=== PATIENT | male | born 1990 ===

== ENCOUNTER 2024-08-06 16:11 | Emergency (ER) | payer OTHER ==
--- NOTE | 2024-08-06 17:03 | ED ---
General Adult HPI - General Chief complaint: Psychiatric Symptoms Stated complaint: AMS Time Seen by Provider: 08/06/24 16:17 Source: patient Mode of arrival: EMS Limitations: altered mental status - History of Present Illness Initial comments: Dictation was produced using [employer] dictation software. please excuse any grammatical, word or spelling errors. Chief Complaint: 34-year-old male presents with heroin and benzodiazepine withdrawal History of Present Illness: Patient 34-year-old male he misses transportation to [facility] for facility treatment of illicit drug use and dependence. Patient states that he has an addiction to benzodiazepines and opiates. States that he started to feel little weak and withdrawing from the substances. He does take benzodiazepines at home. Denies any suicidal homicidal ideation. The ROS documented in this emergency department record has been reviewed and confirmed by me. Those systems with pertinent positive or negative responses have been documented in the HPI. All other systems are other negative and/or noncontributory. - Related Data Previous Rx's Medication Instructions Recorded ALPRAZolam [Xanax] 0.5 mg PO DAILY PRN 3 Days #3 08/06/24 tablet Allergies Allergy/AdvReac Type Severity Reaction Status Date / Time buspirone Allergy Swelling Verified 08/06/24 17:11 Review of Systems ROS Statement: Those systems with pertinent positive or pertinent negative responses have been documented in the HPI. ROS Other: All systems not noted in ROS Statement are negative. Past Medical History History of Any Multi-Drug Resistant Organisms: None Reported Additional Past Surgical History / Comment(s): 2010 wisdom teeth Past Psychological History: ADD/ADHD, Anxiety, Depression, Panic Disorder Smoking Status: Current every day smoker, Vaper Past Alcohol Use History: None Reported Past Drug Use History: Cocaine, Heroin, Marijuana, Methamphetamine, Prescription Drug Abuse General Exam - General Exam Comments Initial Comments: PHYSICAL EXAM: General Impression: Alert and oriented x3, not in acute distress HEENT: Normocephalic atraumatic, extra-ocular movements intact, pupils equal and reactive to light bilaterally, mucous membranes moist. Cardiovascular: Heart regular rate and rhythm Chest: Able to complete full sentences, no retractions, no tachypnea Abdomen: abdomen soft, non-tender, non-distended, no organomegaly Musculoskeletal: Pulses present and equal in all extremities, no peripheral edema Motor: no focal deficits noted Neurological: CN II-XII grossly intact, no focal motor or sensory deficits noted Skin: Intact with no visualized rashes Psych: Normal affect and mood Limitations: altered mental status Course Vital Signs 08/06/24 08/06/24 08/06/24 16:18 17:14 18:16 Temperature 98.3 F 98 F Pulse Rate 100 89 87 Respiratory 18 18 20 Rate Blood Pressure 102/77 102/77 124/61 O2 Sat by Pulse 100 97 95 Oximetry EKG Findings - EKG Comments: EKG Findings:: My EKG interpretation: Ventricular rate 88, sinus rhythm, DE interval 153, QRS 88, QTc 406. No DE prolongation, no QTC prolongation, no ST or T-wave changes noted. Overall, this EKG is unremarkable Medical Decision Making - Medical Decision Making Was pt. sent in by a medical professional or institution (, PA, TRANSITIONAL LIVING SPECIALIST, urgent care, hospital, or assisted...) When possible be specific @ -No Did you speak to anyone other than the patient for history (EMS, parent, family, police, friend...)? What history was obtained from this source @ -No Did you review nursing and triage notes (agree or disagree)? Why? @ -I reviewed and agree with nursing and triage notes Were old charts reviewed (outside hosp., previous admission, EMS record, old EKG, old radiological studies, urgent care reports/EKG's, assisted records)? Report findings @ -No old charts were reviewed Differential Diagnosis (chest pain, altered mental status, abdominal pain women, abdominal pain men, vaginal bleeding, musculoskeletal, weakness, fever, dyspnea, syncope, headache, dizziness, GI bleed, back pain, seizure, CVA, palpatations, mental health)? @ -Differential Weakness: Hypoglycemia, shock, sepsis, hyponatremia, anemia, infection, ME, ETOH, adverse medicine reaction, overdose, stroke, this is not meant to be an all-inclusive list. EKG interpreted by me (3pts min.). @ -See above X-rays interpreted by me (1pt min.). @ -None done CT interpreted by me (1pt min.). @ -None done U/S interpreted by me (1pt. min.). @ -None done What testing was considered but not performed or refused? (CT, X-rays, U/S, labs)? Why? @ -None What meds were considered but not given or refused? Why? @ -None Was smoking cessation discussed for >3mins.? @ -No Were there social determinants of health that impacted care today? How? (Homelessness, low income, unemployed, alcoholism, drug addiction, transportation, low edu. Level, literacy, decrease access to med. care, prison, rehab)? @ -No Was there de-escalation of care discussed even if they declined (Discuss DNR or withdrawal of care, Hospice)? DNR status @ -No What co-morbidities impacted this encounter? (DM, HTN, Smoking, COPD, CAD, Cancer, CVA, ARF, Chemo, Hep., AIDS, mental health diagnosis, sleep apnea, morbid obesity)? @ -None Was patient admitted / discharged? Hospital course, mention meds given and route, prescriptions, significant lab abnormalities, going to OR and other pertinent info. @ -34-year-old male presents emergency department for concerns of withdrawal. Vital signs are stable. Patient states he is dependent on opiates and benzod iazepines. Does not have any benzodiazepine medications at home. Patient given Ativan IV fluids. Labs unremarkable. Patient observed in emergency department for 4 hours. Reevaluated bedside 80 1 PM found to be stable condition. Patient discharged advised follow-up with [facility] tomorrow morning for in facility admission. Did you discuss the management of the patient with other professionals (professionals i.e. , PA, TRANSITIONAL LIVING SPECIALIST, lab, RT, psych nurse, nursing home social worker, boilermaking supervisor, teacher, forest fire officer, rehabilitation case coordinator)? Give summary @ -No Was critical care preformed (if so, how long)? @ -No Undiagnosed new problem with uncertain prognosis? @ -No Drug Therapy requiring intensive monitoring for toxicity (Heparin, Nitro, Insulin, Cardizem)? @ -No Were any procedures done? @ -No Diagnosis/symptom? Acute, or Chronic, or Acute on Chronic? Uncomplicated (without systemic symptoms) or Complicated (systemic symptoms)? @ -Benzodiazepine dependence Side effects of treatment? @ -No Exacerbation, Progression, or Severe Exacerbation? @ -No Poses a threat to life or bodily function? How? (Chest pain, USA, [place], pneumonia, PE, COPD, DKA, ARF, appy, cholecystitis, CVA, Diverticulitis, Homicidal, Suicidal, threat to staff... and all critical care pts) @ -yes - Lab Data Result diagrams: 08/06/24 17:13 08/06/24 17:13 Lab Results 08/06/24 08/06/24 Range/Units 17:13 17:13 WBC 5.84 (4.50-10.00) 10*3/uL RBC 5.91 H (4.40-5.60) 10*6/uL Hgb 16.5 (13.0-17.0) g/dL Hct 48.6 (39.6-50.0) % MCV 82.2 (80.0-97.0) fL MCH 27.9 (27.0-32.0) pg MCHC 34.0 (32.0-37.0) g/dL Plt Count 445 H (140-440) 10*3/uL MPV 8.9 L (9.5-12.2) fL Immature Gran % (Auto) 0.2 % Neutrophils % 67.6 % Lymphocytes % 26.9 % Monocytes % 4.3 % Eosinophils % 0.7 % Basophils % 0.3 % Immature Gran # 0.01 (0.00-0.04) 10*3/uL Neutrophils # 3.95 (1.80-7.70) 10*3/uL Lymphocytes # 1.57 (0.90-5.00) 10*3/uL Monocytes # 0.25 (0.20-1.00) 10*3/uL Eosinophils # 0.04 (0.04-0.35) 10*3/uL Basophils # 0.02 (0.00-0.10) 10*3/uL Sodium 139 (137-145) mmol/L Potassium 4.7 (3.5-5.1) mmol/L Chloride 101 (98-107) mmol/L Carbon Dioxide 22 (22-30) mmol/L Anion Gap 16 mmol/L BUN 13 (9-20) mg/dL Creatinine 0.84 (0.66-1.25) mg/dL Est GFR (CKD-EPI)AfAm >90 (>60 ml/min/1.73 sqM) Est GFR (CKD-EPI)NonAf >90 (>60 ml/min/1.73 sqM) Glucose 87 (74-99) mg/dL Calcium 10.3 H (8.4-10.2) mg/dL Magnesium 2.2 (1.6-2.3) mg/dL Disposition Clinical Impression: Benzodiazepine abuse Disposition: HOME SELF-CARE Condition: Good Instructions (If sedation given, give patient instructions): Benzodiazepine Abuse (ED) Prescriptions: ALPRAZolam [Xanax] 0.5 mg PO DAILY PRN 3 Days #3 tablet PRN Reason: Anxiety Is patient prescribed a controlled substance at d/c from ED?: Yes If prescribed controlled substance>3 days was MAPS reviewed?: Prescribed <3 Days Referrals: None,Stated [Primary Care Provider] - 1-2 days Time of Disposition: 20:04
[2024-08-06 17:18] VITALS: TEMP 98
[2024-08-06 17:26] LABS: Basophils # (A) 0.02 10*3/uL (0.00-0.10); Basophils % (A) 0.3 %; Eosinophils # (A) 0.04 10*3/uL (0.04-0.35); Eosinophils % (A) 0.7 %; HCT 48.6 % (39.6-50.0); HGB 16.5 g/dL (13.0-17.0); Lymphocytes # (A) 1.57 10*3/uL (0.90-5.00); Lymphocytes % (A) 26.9 %; MCH 27.9 pg (27.0-32.0); MCV 82.2 fL (80.0-97.0); Mean Platelet Volume 8.9 fL (9.5-12.2); Monocytes # (A) 0.25 10*3/uL (0.20-1.00); Monocytes % (A) 4.3 %; Neutrophils # (A) 3.95 10*3/uL (1.80-7.70); Neutrophils % (A) 67.6 %; Platelet Count 445 10*3/uL (140-440); RBC 5.91 10*6/uL (4.40-5.60); RDW 12.2 % (11.5-14.5); WBC 5.84 10*3/uL (4.50-10.00)
[2024-08-06 18:08] LABS: African American GFR (CKD) >90 (>60 ml/min/1.73 sqM); Anion Gap 16 mmol/L; Blood Urea Nitrogen 13 mg/dL (9-20); Calcium 10.3 mg/dL (8.4-10.2); Carbon Dioxide 22 mmol/L (22-30); Chloride 101 mmol/L (98-107); Glucose 87 mg/dL (74-99); Magnesium 2.2 mg/dL (1.6-2.3); Non-African American GFR(CKD) >90 (>60 ml/min/1.73 sqM); Potassium 4.7 mmol/L (3.5-5.1); Sodium 139 mmol/L (137-145)
[2024-08-06 20:08] VITALS: RESP 18
[2024-08-06] MEDS: ALPRAZolam 1 MG TAB PO STA (20:14)
--- NOTE | 2024-08-06 20:20 | ED ---
Medical Decision Making - Lab Data Result diagrams: 08/06/24 17:13 08/06/24 17:13 Lab Results 08/06/24 08/06/24 Range/Units 17:13 17:13 WBC 5.84 (4.50-10.00) 10*3/uL RBC 5.91 H (4.40-5.60) 10*6/uL Hgb 16.5 (13.0-17.0) g/dL Hct 48.6 (39.6-50.0) % MCV 82.2 (80.0-97.0) fL MCH 27.9 (27.0-32.0) pg MCHC 34.0 (32.0-37.0) g/dL Plt Count 445 H (140-440) 10*3/uL MPV 8.9 L (9.5-12.2) fL Immature Gran % (Auto) 0.2 % Neutrophils % 67.6 % Lymphocytes % 26.9 % Monocytes % 4.3 % Eosinophils % 0.7 % Basophils % 0.3 % Immature Gran # 0.01 (0.00-0.04) 10*3/uL Neutrophils # 3.95 (1.80-7.70) 10*3/uL Lymphocytes # 1.57 (0.90-5.00) 10*3/uL Monocytes # 0.25 (0.20-1.00) 10*3/uL Eosinophils # 0.04 (0.04-0.35) 10*3/uL Basophils # 0.02 (0.00-0.10) 10*3/uL Sodium 139 (137-145) mmol/L Potassium 4.7 (3.5-5.1) mmol/L Chloride 101 (98-107) mmol/L Carbon Dioxide 22 (22-30) mmol/L Anion Gap 16 mmol/L BUN 13 (9-20) mg/dL Creatinine 0.84 (0.66-1.25) mg/dL Est GFR (CKD-EPI)AfAm >90 (>60 ml/min/1.73 sqM) Est GFR (CKD-EPI)NonAf >90 (>60 ml/min/1.73 sqM) Glucose 87 (74-99) mg/dL Calcium 10.3 H (8.4-10.2) mg/dL Magnesium 2.2 (1.6-2.3) mg/dL Disposition Clinical Impression: Benzodiazepine abuse Disposition: HOME SELF-CARE Condition: Good Instructions (If sedation given, give patient instructions): Benzodiazepine Abuse (ED) Prescriptions: ALPRAZolam [Xanax] 0.5 mg PO DAILY PRN #3 tablet PRN Reason: withdrawal symptoms Is patient prescribed a controlled substance at d/c from ED?: Yes If prescribed controlled substance>3 days was MAPS reviewed?: Prescribed <3 Days Referrals: None,Stated [Primary Care Provider] - 1-2 days
[2024-08-06 20:22] VITALS: BP 124/64; PULSE 92
== END 2024-08-06 20:21 | disposition home or self-care (01) ==
LOC: EC 16:11
DX: F13.10 Sedative, hypnotic or anxiolytic abuse, uncomplicated (principal); F17.290 Nicotine dependence, other tobacco product, uncomplicated; Z88.8 Allergy status to other drugs, medicaments and biological substances
CPT/HCPCS: 36415; 80048; 83735; 85025; 93005; 99285

== ENCOUNTER 2024-08-06 20:51 | Emergency (ER) | payer OTHER ==
--- NOTE | 2024-08-06 22:20 | ED ---
General Adult HPI - General Stated complaint: Shaky,Dizziness Time Seen by Provider: 08/06/24 21:03 Source: patient, RN notes reviewed Mode of arrival: wheelchair Limitations: no limitations - History of Present Illness Initial comments: Quick note: This is a 34-year-old male with history of extensive drug abuse presenting for dizziness and shakiness starting this morning. Patient was seen in the ER earlier today with similar symptoms, stating symptoms are still ongoing. Patient mentions he is unable to walk but was able to walk from waiting room to fast-track room without difficulty. CBC and BMP taken about 4 hours prior to patient's return revealed no concerning findings. Patient received Xanax from physician earlier today for ongoing benzodiazepine and opiate withdrawal symptoms. Onset/Timin -: days(s) Associated Symptoms: weakness Treatments Prior to Arrival: none - Related Data Previous Rx's Medication Instructions Recorded ALPRAZolam [Xanax] 0.5 mg PO DAILY PRN #3 tablet 08/06/24 Allergies Allergy/AdvReac Type Severity Reaction Status Date / Time buspirone Allergy Swelling Verified 08/06/24 23:06 Review of Systems ROS Statement: Those systems with pertinent positive or pertinent negative responses have been documented in the HPI. ROS Other: All systems not noted in ROS Statement are negative. Past Medical History History of Any Multi-Drug Resistant Organisms: None Reported Additional Past Surgical History / Comment(s): 2010 wisdom teeth Past Psychological History: ADD/ADHD, Anxiety, Depression, Panic Disorder Smoking Status: Current every day smoker, Vaper Past Alcohol Use History: None Reported Past Drug Use History: Cocaine, Heroin, Marijuana, Methamphetamine, Prescription Drug Abuse General Exam General appearance: alert, in no apparent distress Head exam: Present: atraumatic, normocephalic, normal inspection Eye exam: Present: normal appearance, PERRL, EOMI. Absent: scleral icterus, conjunctival injection, periorbital swelling ENT exam: Present: normal exam, mucous membranes moist Neck exam: Present: normal inspection. Absent: tenderness, meningismus, lymphadenopathy Respiratory exam: Present: normal lung sounds bilaterally. Absent: respiratory distress, wheezes, rales, rhonchi, stridor, accessory muscle use, decreased breath sounds, prolonged expiratory Cardiovascular Exam: Present: regular rate, normal rhythm, normal heart sounds. Absent: systolic murmur, diastolic murmur, rubs, gallop, clicks GI/Abdominal exam: Present: soft, normal bowel sounds. Absent: distended, t enderness, guarding, rebound, rigid Extremities exam: Present: normal inspection, full ROM, normal capillary refill. Absent: tenderness, pedal edema, joint swelling, calf tenderness Back exam: Present: normal inspection Neurological exam: Present: alert, oriented X3, CN II-XII intact Psychiatric exam: Present: normal affect, normal mood Skin exam: Present: warm, dry, intact, normal color. Absent: rash Course Vital Signs 08/06/24 23:00 Temperature 98.1 F Pulse Rate 63 Respiratory 20 Rate Blood Pressure 133/89 O2 Sat by Pulse 98 Oximetry Medical Decision Making - Medical Decision Making Was pt. sent in by a medical professional or institution (YEIMY Obando, HARDWARE TEST ENGINEER, urgent care, hospital, or [place] [facility] facility...) When possible be specific @ -[No] Did you speak to anyone other than the patient for history (EMS, parent, family, police, friend...)? What history was obtained from this source @ -[No] Did you review nursing and triage notes (agree or disagree)? Why? @ -[I reviewed and agree with nursing and triage notes] Were old charts reviewed (outside hosp., previous admission, EMS record, old EKG, old radiological studies, urgent care reports/EKG's, [place] [facility] facility records)? Report findings @ -[No old charts were reviewed] Differential Diagnosis (chest pain, altered mental status, abdominal pain women, abdominal pain men, vaginal bleeding, weakness, fever, dyspnea, syncope, headache, dizziness, GI bleed, back pain, seizure, CVA, palpatations, mental health, musculoskeletal)? @ -Differential Weakness: Hypoglycemia, shock, sepsis, hyponatremia, anemia, infection, HI, ETOH, adverse medicine reaction, overdose, stroke, this is not meant to be an all-inclusive list. EKG interpreted by me (3pts min.). @ -Not done X-rays interpreted by me (1pt min.). @ -[None done] CT interpreted by me (1pt min.). @ -[None done] U/S interpreted by me (1pt. min.). @ -[None done] What testing was considered but not performed or refused? (CT, X-rays, U/S, labs)? Why? @ -[None] What meds were considered but not given or refused? Why? @ -[None] Did you discuss the management of the patient with other professionals (professionals i.e. , PA, HARDWARE TEST ENGINEER, lab, RT, psych nurse, social media job titles, patternmaker pressure cast, teacher, health officer, showcase maker)? Give summary @ -[No] Was smoking cessation discussed for >3mins.? @ -[No] Was critical care preformed (if so, how long)? @ -[No] Were there social determinants of health that impacted care today? How? (Homelessness, low income, unemployed, alcoholism, drug addiction, transportation, low edu. Level, literacy, decrease access to med. care, [facility], rehab)? @ -[No] Was there de-escalation of care discussed even if they declined (Discuss DNR or withdrawal of care, Hospice)? DNR status @ -[No] What co-morbidities impacted this encounter? (DM, HTN, Smoking, COPD, CAD, Cancer, CVA, ARF, Chemo, Hep., AIDS, mental health diagnosis, sleep apnea, morbid obesity)? @ -[None] Was patient admitted / discharged? Hospital course, mention meds given and route, prescriptions, significant lab abnormalities, going to OR and other pertinent info. @ -[hospital course] Undiagnosed new problem with uncertain prognosis? @ -[No] Drug Therapy requiring intensive monitoring for toxicity (Heparin, Nitro, Insulin, Cardizem)? @ -[No] Were any procedures done? @ -[No] Diagnosis/symptom? @ -[default] Acute, or Chronic, or Acute on Chronic? @ -Acute Uncomplicated (without systemic symptoms) or Complicated (systemic symptoms)? @ -Complicated Side effects of treatment? @ -[No] Exacerbation, Progression, or Severe Exacerbation? @ -[No] Poses a threat to life or bodily function? How? (Chest pain, USA, [place], pneumonia, PE, COPD, DKA, ARF, appy, cholecystitis, CVA, Diverticulitis, Homicidal, Suicidal, threat to staff... and all critical care pts) @ -[No] - Lab Data Lab Results 08/06/24 Range/Units 23:52 POC Glucose (mg/dL) 90 (70-110) mg/dL POC Glu Egyptologist ID Tyndalljuaquin Santillan Disposition Clinical Impression: Benzodiazepine abuse Disposition: HOME SELF-CARE Condition: Fair Instructions (If sedation given, give patient instructions): Benzodiazepine Abuse (ED) Is patient prescribed a controlled substance at d/c from ED?: No Referrals: Nonstaff,Physician [Primary Care Provider] - 1-2 days Marshall Frias Jr, DO [Doctor of Osteopathic Medicine] - 1-2 days Time of Disposition: 00:18
[2024-08-06 23:55] LABS: Glucose,Whole Blood 90 mg/dL (70-110)
[2024-08-07 01:15] VITALS: BP 100/60; PULSE 95; RESP 16; TEMP 99.2
== END 2024-08-07 01:15 | disposition home or self-care (01) ==
LOC: EC 20:51
DX: F13.10 Sedative, hypnotic or anxiolytic abuse, uncomplicated (principal); F17.290 Nicotine dependence, other tobacco product, uncomplicated; Z88.8 Allergy status to other drugs, medicaments and biological substances
CPT/HCPCS: 36415; 99284

== ENCOUNTER 2024-08-07 03:10 | Emergency (ER) | payer OTHER ==
--- NOTE | 2024-08-07 03:14 | ED ---
General Adult HPI - General Stated complaint: Dizzy Time Seen by Provider: 08/07/24 03:13 Source: patient, EMS, RN notes reviewed Mode of arrival: EMS Limitations: no limitations - History of Present Illness Initial comments: This is a 34-year-old male presents emergency department chief complaint of drug abuse. Patient has been seen here twice last several hours for same complaints. He did receive benzodiazepine and a prescription. Patient did leave the emergency department and reportedly went and use more drugs. Patient is stating that he needs further opiates and benzos because he uses so much in the day. Patient was scheduled for rehab today he did not complete this. Patient denies hallucinations no chest pain or shortness of breath no other complaints. - Related Data Previous Rx's Medication Instructions Recorded ALPRAZolam [Xanax] 0.5 mg PO DAILY PRN #3 tablet 08/06/24 Allergies Allergy/AdvReac Type Severity Reaction Status Date / Time buspirone Allergy Swelling Verified 08/06/24 23:06 Review of Systems ROS Statement: Those systems with pertinent positive or pertinent negative responses have been documented in the HPI. ROS Other: All systems not noted in ROS Statement are negative. Past Medical History History of Any Multi-Drug Resistant Organisms: None Reported Additional Past Surgical History / Comment(s): 2010 wisdom teeth Past Psychological History: ADD/ADHD, Anxiety, Depression, Panic Disorder Smoking Status: Current every day smoker, Vaper Past Alcohol Use History: None Reported Past Drug Use History: Cocaine, Heroin, Marijuana, Methamphetamine, Prescription Drug Abuse General Exam Limitations: no limitations General appearance: alert, in no apparent distress Head exam: Present: atraumatic, normocephalic, normal inspection Eye exam: Present: normal appearance, PERRL, EOMI. Absent: scleral icterus, conjunctival injection, periorbital swelling ENT exam: Present: normal exam, mucous membranes moist Neck exam: Present: normal inspection. Absent: tenderness, meningismus, lymphadenopathy Respiratory exam: Present: normal lung sounds bilaterally. Absent: respiratory distress, wheezes, rales, rhonchi, stridor Cardiovascular Exam: Present: regular rate, normal rhythm, normal heart sounds. Absent: systolic murmur, diastolic murmur, rubs, gallop, clicks Back exam: Present: normal inspection Neurological exam: Present: alert, oriented X3, CN II-XII intact, reflexes normal. Absent: motor sensory deficit Medical Decision Making - Medical Decision Making Was pt. sent in by a medical professional or institution (YEIMY Obando, STENOTYPE MACHINE OPERATOR, urgent care, hospital, or senior care...) When possible be specific @ -No Did you speak to anyone other than the patient for history (EMS, parent, family, police, friend...)? What history was obtained from this source @ -No Did you review nursing and triage notes (agree or disagree)? Why? @ -I reviewed and agree with nursing and triage notes Were old charts reviewed (outside hosp., previous admission, EMS record, old EKG, old radiological studies, urgent care reports/EKG's, senior care records)? Report findings @ -Reviewed 2 prior ER records Differential Diagnosis (chest pain, altered mental status, abdominal pain women, abdominal pain men, vaginal bleeding, weakness, fever, dyspnea, syncope, headache, dizziness, GI bleed, back pain, seizure, CVA, palpatations, mental health, musculoskeletal)? @ -Drug abuse drug withdrawal EKG interpreted by me (3pts min.). @ -None X-rays interpreted by me (1pt min.). @ -None done CT interpreted by me (1pt min.). @ -None done U/S interpreted by me (1pt. min.). @ -None done What testing was considered but not performed or refused? (CT, X-rays, U/S, labs)? Why? @ -None What meds were considered but not given or refused? Why? @ -None Did you discuss the management of the patient with other professionals (professionals i.e. YEIMY Obando, STENOTYPE MACHINE OPERATOR, lab, RT, psych nurse, sexual assault social worker, global sourcing manager, teacher, asset protection officer, housing case manager)? Give summary @ -No Was smoking cessation discussed for >3mins.? @ -No Was critical care preformed (if so, how long)? @ -No Were there social determinants of health that impacted care today? How? (Homelessness, low income, unemployed, alcoholism, drug addiction, transportation, low edu. Level, literacy, decrease access to med. care, [place] [facility], rehab)? @ -No Was there de-escalation of care discussed even if they declined (Discuss DNR or withdrawal of care, Hospice)? DNR status @ -No What co-morbidities impacted this encounter? (DM, HTN, Smoking, COPD, CAD, Cancer, CVA, ARF, Chemo, Hep., AIDS, mental health diagnosis, sleep apnea, morbid obesity)? @ -None Was patient admitted / discharged? Hospital course, mention meds given and route, prescriptions, significant lab abnormalities, going to OR and other pertinent info. @ -Discharged patient is in no signs distress. Patient is vitally stable. Patient was given benzodiazepines and a prescription. Patient has been abusing his medications and will not receive any further medications as he has them. Patient vies go to rehab in the morning. Undiagnosed new problem with uncertain prognosis? @ -No Drug Therapy requiring intensive monitoring for toxicity (Heparin, Nitro, Insulin, Cardizem)? @ -No Were any procedures done? @ -No Diagnosis/symptom? @ -Drug abuse Acute, or Chronic, or Acute on Chronic? @ -Acute Uncomplicated (without systemic symptoms) or Complicated (systemic symptoms)? @ -Uncomplicated Side effects of treatment? @ -No Exacerbation, Progression, or Severe Exacerbation? @ -No Poses a threat to life or bodily function? How? (Chest pain, [place], [place], pneumonia, PE, COPD, DKA, ARF, appy, cholecystitis, CVA, Diverticulitis, Homicidal, Suicidal, threat to staff... and all critical care pts) @ -No Disposition Clinical Impression: Drug abuse Disposition: HOME SELF-CARE Condition: Stable Additional Instructions: Please return to the Emergency Department if symptoms worsen or any other concerns. Is patient prescribed a controlled substance at d/c from ED?: No Referrals: Nonstaff,Physician [Primary Care Provider] - 1-2 days Time of Disposition: 03:14
[2024-08-07 03:36] VITALS: BP 120/83; PULSE 89; RESP 18
== END 2024-08-07 03:51 | disposition home or self-care (01) ==
LOC: EC 03:10
DX: F19.10 Other psychoactive substance abuse, uncomplicated (principal); F17.290 Nicotine dependence, other tobacco product, uncomplicated; Z88.8 Allergy status to other drugs, medicaments and biological substances
CPT/HCPCS: 99284